=== PATIENT | male | born 1960 | race Caucasian/White ===

== ENCOUNTER 2021-10-23 14:44 | Emergency (ER) | payer SELFPAY ==
[~2021-10-23] VITALS: Ht 182.9 cm; Wt 109.1 kg
[~2021-10-23 14:44] MED LIST: ATE25T PO; ATEN-169 PO; CITA20TA28; CLON2TAB45; CYCL-1 PO; IBUP-1572 PO; LURA80TA2; METF-1203; QUET-1 PO; QUET200T PO; QUET200T5 PO; QUET400T PO; QUET400T5 PO; RAMI5CAP65 PO; TEMA15CA; TRAZ-256; [UNRECOGNIZED DRUG - CODE]
[2021-10-23 15:09] VITALS: BP 162/100
[2021-10-23] MEDS ORDERED: LANTUS SQ (16:05)
== END 2021-10-23 16:11 | disposition home or self-care (01) ==
LOC: ER 14:44
DX: E11.9 Type 2 diabetes mellitus without complications (principal); F17.200 Nicotine dependence, unspecified, uncomplicated; I10 Essential (primary) hypertension; Z87.81 Personal history of (healed) traumatic fracture
CPT/HCPCS: 99281; 99285

== ENCOUNTER 2021-12-01 10:18 | Emergency (ER) | payer MEDICAID ==
[~2021-12-01] VITALS: Ht 182.9 cm; Wt 104.5 kg
[2021-12-01] MEDS ORDERED: LIDOcaine 1% W/epiNEPHrine 1:200,000 10ml vial IJ ONE (11:00)
[2021-12-01] MEDS ORDERED: LIDOcaine 1% W/epiNEPHrine 1:100,000 20ml vial IJ ONE (11:05)
[2021-12-01 11:24] LABS: BASOPHILS # (AUTO) 0.1 X10'3 (0-0.2); BASOPHILS % (AUTO) 0.9 % (0-1); EOSINOPHILS # (AUTO) 0.1 X10'3 (0-0.9); EOSINOPHILS % (AUTO) 1.4 % (0-6); HEMATOCRIT 38.8 % (42.0-52.0); HEMOGLOBIN 13.2 g/dl (14.0-17.9); LYMPHOCYTES # (AUTO) 1.5 X10'3 (1.1-4.8); LYMPHOCYTES % (AUTO) 15.5 % (21-51); MEAN CORPUSCULAR HEMOGLOBIN 29.9 PG (27.0-31.0); MEAN CORPUSCULAR HGB CONC 34.1 g/dL (33.0-36.5); MEAN CORPUSCULAR VOLUME 87.7 FL (78-98); MEAN PLATELET VOLUME 8.3 FL (7.4-10.4); MONOCYTES # (AUTO) 0.7 X10'3 (0-0.9); MONOCYTES % (AUTO) 6.9 % (2-12); NEUTROPHILS # (AUTO) 7.4 X10'3 (1.8-7.7); NEUTROPHILS % (AUTO) 75.3 % (42-75); PLATELET COUNT 235 X10'3 (140-440); RED BLOOD COUNT 4.42 X10'6 (4.70-6.10); RED CELL DISTRIBUTION WIDTH 13.5 % (11.5-14.5); WHITE BLOOD COUNT 9.8 X10'3 (4.5-11.0)
[2021-12-01 11:27] LABS: CLARITY,URINE CLEAR (Clear); COLOR,URINE YELLOW (Yellow); GLUCOSE, URINE >=1000 mg/dl (Neg); KETONES,URINE 40 mg/dl (Neg); LEUKOCYTE ESTERASE ,URINE NEGATIVE (Neg); NITRITES, URINE NEGATIVE (Neg); OCCULT BLOOD,URINE NEGATIVE (Neg); PROTEIN,URINE NEGATIVE (Neg); UROBILINOGEN,URINE 0.2 E.U/dL (0.2-1.0)
[2021-12-01 11:28] LABS: UA COLLECTION TYPE CLN CATCH MIDSTREAM
[2021-12-01 11:33] LABS: BACTERIA,URINE FEW /HPF (Neg); MUCUS STRANDS NONE SEEN /LPF (Neg); RBC,URINE NONE SEEN /HPF (0-2); SQUAMOUS EPITHELIAL CELL,UR FEW /LPF (FEW); WBC,URINE 0-4 /HPF (0-4)
[2021-12-01] MEDS ORDERED: morphine 4 MG/ML inj SYRINge IM ONE (11:35)
[2021-12-01 11:40] LABS: ALANINE AMINOTRANSFERASE 10 U/L (12-78); ALBUMIN 2.7 G/DL (3.4-5.0); ALBUMIN/GLOBULIN RATIO 0.6 (1.1-1.5); ALKALINE PHOSPHATASE 137 IU/L (46-116); ANION GAP 12 (8-16); ASPARTATE AMINO TRANSFERASE 10 U/L (10-37); BILIRUBIN,TOTAL 0.3 MG/DL (0.1-1.0); BLOOD UREA NITROGEN 8 MG/DL (7-18); BUN/CREATININE RATIO 9.6 (5.4-32.0); CALCIUM 8.7 MG/DL (8.5-10.1); CHLORIDE 98 MMOL/L (99-107); CREATININE 0.83 MG/DL (0.60-1.10); POTASSIUM 3.6 MMOL/L (3.5-5.1); SODIUM 134 MMOL/L (135-145); TOTAL CARBON DIOXIDE 23.8 MMOL/L (24-32); TOTAL PROTEIN 7.4 G/DL (6.4-8.2); eGFR > 90 ML/MIN
[2021-12-01 11:43] LABS: GLUCOSE 486 MG/DL (70-104)
[2021-12-01 11:52] VITALS: BP 134/80
[2021-12-01] MEDS ORDERED: NPH, human insulin isophane inj. SQ SCH (12:00)
[2021-12-01] MEDS ORDERED: normal saline 1000ML IV soln IVB ONE ×2 (12:00)
[2021-12-01] MEDS ORDERED: insulin regular, human 10 units/0.1 ml syringe SQ ONE (12:15)
[2021-12-01] MEDS ORDERED: DOXYCYCLINE 100MG CAPSULE PO STA (12:32)
[2021-12-01] MEDS ORDERED: cephalexin 500mg capsule PO ONE (12:35)
[2021-12-01] MEDS ORDERED: CEPH500C2 PO (13:13)
[2021-12-01] MEDS ORDERED: DOXY-11 PO (13:13)
== END 2021-12-01 13:38 | disposition home or self-care (01) ==
LOC: ER 10:18
DX: L02.31 Cutaneous abscess of buttock (principal)
CPT/HCPCS: 10060; 36415; 74176; 80053; 81001; 85025; 87070; 87077; 87186; 96372; 99284; J1815; J2270; J7030; A6407; A6449

== ENCOUNTER 2021-12-02 15:44 | Emergency (ER) | payer MEDICAID ==
[~2021-12-02] VITALS: Ht 185.4 cm; Wt 104.5 kg
[~2021-12-02 15:44] MED LIST changes: +CEPH500C2 PO; +DOXY-11 PO
[2021-12-02 16:12] VITALS: BP 140/76
== END 2021-12-02 17:33 | disposition home or self-care (01) ==
LOC: ER 15:45
DX: L05.01 Pilonidal cyst with abscess (principal); I10 Essential (primary) hypertension; E11.9 Type 2 diabetes mellitus without complications; F12.90 Cannabis use, unspecified, uncomplicated; Z87.81 Personal history of (healed) traumatic fracture; Z56.0 Unemployment, unspecified; Z79.2 Long term (current) use of antibiotics; Z79.899 Other long term (current) drug therapy
CPT/HCPCS: 99281; A6449

== ENCOUNTER 2023-02-11 10:24 | Emergency (ER) | payer MEDICAID ==
[~2023-02-11] VITALS: Ht 182.9 cm; Wt 90.9 kg
[~2023-02-11 10:24] MED LIST changes: -CEPH500C2 PO; -DOXY-11 PO
[2023-02-11 10:29] VITALS: BP 175/109; PULSE 91; RESP 18; TEMP 98.5; O2SAT 98
[2023-02-11] MEDS ORDERED: OLAN10TA73 PO ×3 (10:44→10:48)
[2023-02-11] MEDS ORDERED: FLUO40CA PO ×2 (10:44→10:48)
[2023-02-11] MEDS ORDERED: QUET200T PO (10:48)
== END 2023-02-11 11:05 | disposition home or self-care (01) ==
LOC: ER 10:25
DX: F20.9 Schizophrenia, unspecified (principal); Z76.0 Encounter for issue of repeat prescription
CPT/HCPCS: 99281

== ENCOUNTER 2023-05-10 15:50 | Emergency (ER) | payer MEDICAID ==
[~2023-05-10] VITALS: Ht 182.9 cm; Wt 98.8 kg
[~2023-05-10 15:50] MED LIST changes: +FLUO40CA PO; +OLAN10TA73 PO
[2023-05-10 15:55] VITALS: BP 177/95; PULSE 90; RESP 16; TEMP 97.7; O2SAT 98
[2023-05-10] MEDS ORDERED: OLAN10TA3 PO (16:04)
[2023-05-10] MEDS ORDERED: FLUO40CA10 PO (16:04)
[2023-05-10] MEDS ORDERED: QUET-1 PO (16:04)
== END 2023-05-10 16:53 | disposition home or self-care (01) ==
LOC: ER 15:51
DX: F20.9 Schizophrenia, unspecified (principal); Z76.0 Encounter for issue of repeat prescription; I10 Essential (primary) hypertension; E11.9 Type 2 diabetes mellitus without complications; F12.10 Cannabis abuse, uncomplicated; Z59.00 Homelessness unspecified; Z87.81 Personal history of (healed) traumatic fracture
CPT/HCPCS: 99281